=== PATIENT | female | born 1955 | race Two or more races ===

== ENCOUNTER 2024-05-09 21:23 | Emergency (ER) | payer MEDICAID ==
[~2024-05-09] VITALS: Ht 165.1 cm; Wt 79.6 kg
[2024-05-09 21:55] VITALS: BP 129/63; PULSE 100; RESP 16; O2SAT 96
[2024-05-10] MEDS: ACETAMINOPHEN 325 MG TAB PO ONE (00:27)
[2024-05-10 00:58] LABS: COVID19 ANTIGEN SOFIA FIA NEGATIVE (NEGATIVE); Rapid Influenza B Negative (Negative)
[2024-05-10 00:59] LABS: Rapid Influenza A Positive (Negative)
[2024-05-10 02:00] VITALS: TEMP 98.8
[2024-05-10] MEDS ORDERED: PRED20TA2 PO (02:01)
[2024-05-10] MEDS ORDERED: OSEL75CA5 PO (02:01)
[2024-05-10] MEDS ORDERED: ACET500T58 PO (02:01)
--- NOTE | 2024-05-10 02:01 | ED.PDOC ---
SOB-HPI HPI Comments 69-YEAR-OLD FEMALE PRESENTS TO ER WITH COMPLAINTS OF FLU-LIKE SYMPTOMS X1 DAY. PATIENT REPORTS THAT SHE HAS BEEN EXPERIENCING DRY COUGH, INTERMITTENT FEVER, BODY ACHES AND CONGESTION X1 DAY. REPORTS THAT SHE LAST TOOK IBUPROFEN AT 9:00 A.M. PRIOR TO ARRIVAL TO ER. PATIENT PRESENTS TO ER FEBRILE ON ARRIVAL AT 101.6 F, AMBULATORY, WITH STEADY GAIT, IN NO DISTRESS. SHE REPORTS 8/10 CURRENT BODY ACHES PAIN, DENYING ANY OTHER CURRENT PAIN AND REPORTS SHE HAS BEEN AROUND HER GRANDDAUGHTER WHO HAS ALSO BEEN EXPERIENCING SIMILAR SYMPTOMS. 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 History Family History Family History: Unknown Social History Smoker: Non-Smoker Alcohol: Denies ETOH Use Drugs: Denies Drug Use Lives In: Home Constitutional: reports: others ( STATED IN HPI) EENTM: reports: others ( STATED IN HPI) Respiratory: reports: others ( STATED IN HPI) Cardiovascular: denies: chest pain, dizzy spells, diaphoresis, Dyspnea on exertion, edema, irregular heart beat, left arm pain, lightheadedness, palpitations, PND, syncope, others Gastrointestinal: denies: abdomen distended, abdominal pain, blood streaked bowels, constipated, diarrhea, dysphagia, difficulty swallowing, hematemesis, melena, nausea, poor appetite, poor fluid intake, rectal bleeding, rectal pain, vomiting, others Genitourinary: denies: abnormal vagina bleeding, burning, dyspareunia, dysuria, flank pain, frequency, hematuria, incontinence, pain, , vagina discharge, urgency, others Neurological: denies: dizziness, fainting, headache, left sided numbness, left sided weakness, numbness, paresthesia, pre-existing deficit, right sided numbness, right sided weakness, seizure, speech problems, tingling, tremors, weakness, others Musculoskeletal: denies: back pain, gout, joint pain, joint swelling, muscle pain, muscle stiffness, neck pain, others Integumetry: denies: bruises, change in color, change in hair/nails, dryness, laceration, lesions, lumps, rash, wounds, others Allergic/Immunocompromised: denies: Difficulty Healing, Frequent Infections, Hives, Itching, others Hematologic/Lymphatic: denies: anemia, blood clots, easy bleeding, easy bruising, swollen glands, others Endocrine: denies: excessive hunger, excessive sweating, excessive thirst, excessive urination, flushing, intolerance to cold, intolerance to heat, unexplained weight gain, unexplained weight loss, others Psychiatric: denies: anxiety, bipolar disorder, depression, hopeless, panic disorder, schizophrenia, sleepless, suicidal, others Physical Exam General Appearance: No Apparent Distress, Normal HEENT: Normal ENT Inspection, PERRL/EOMI, Pharynx Normal, TMs Normal Neck: Full Range of Motion, Non-Tender, Normal Respiratory: Chest Non-Tender, Lungs Clear, No Accessory Muscle Use, No Respiratory Distress, Normal Breath Sounds Cardiovascular: No Murmur, No Gallop, Regular Rate/Rhythm Breast Exam: Deferred Gastrointestinal: Non Tender, No Pulsatile Mass, Soft Genitalia: Deferred Pelvic: Deferred Rectal: Deferred Extremities: Normal capillary refill, Normal range of motion Neurologic: Alert, business support professional II-XII nml as Tested, No Motor Deficits, Normal Affect, Normal Mood, No Sensory Deficits Cerebellar Function: Normal Reflexes: Normal Skin: Dry, Normal Color, Warm Lymphatic: No Adenopathy Was a procedure done? Was a procedure done?: No Sedation Sedation?: No Differential Dx Differential Diagnosis: Pneumonia, Respiratory Distress, Pharyngitis, Other (COVID-19) X-Ray, Labs, Meds, VS Vital Signs Date Time Temp Pulse Resp B/P (MAP) Pulse Ox O2 Delivery O2 Flow Rate FiO2 05/10/24 02:00 98.8 98.8 05/10/24 02:00 98.8 05/10/24 00:27 101.1 05/09/24 21:55 101.6 100 16 129/63 (85) 96 Lab Test 05/10/24 00:08 Range/Units Influenza Type A Antigen Positive Negative Influenza Type B Antigen Negative Negative SARS-CoV-2 Antigen (Rapid) Negative NEGATIVE Current Medications Medications (Trade) Dose Ordered Sig/Jenifer Route Start Time Stop Time Status Last Admin Acetaminophen (Tylenol Tablet) 650 mg ONCE ONCE PO 05/10/24 00:30 05/10/24 00:31 DC 05/10/24 00:27 SWAB RESULTS REVIEWED-INFLUENZA A POSITIVE TYLENOL 650 MG P.O. ORDERED PATIENT HAD IMPROVEMENT IN SYMPTOMS, TOLERATING P.O. INTAKE WELL AND NONTOXIC APPEARING/IN NO DISTRESS PRIOR TO DISCHARGE ADVISED TO DRINK PLENTY OF FLUIDS ADVISED TO FOLLOW UP WITH PCP IN 1-2 DAYS PATIENT VERBALIZED UNDERSTANDING AND AGREEABLE WITH CURRENT PLAN OF CARE ADVISED TO RETURN TO ER IMMEDIATELY IF SYMPTOMS WORSEN Time of 1ST Reevaluation: 01:24 Reevaluation 1ST: N/A Patient Education/Counseling: Diagnosis, Treatment, Prognosis, Need For Follow Up Family Education/Counseling: No Family Present Departure 1 Departure Time of Disposition: 01:52 Impression: Primary Impression: Influenza A Disposition: 01 HOME / SELF CARE / HOMELESS Condition: Stable e-Prescriptions Prednisone (Prednisone) 20 Mg Tab 20 MG PO BID for 5 Days, #10 TAB 0 Refills Prov: ARELY PAINTER 05/10/24 Oseltamivir Phosphate (Tamiflu) 75 Mg Cap 1 CAP PO BID for 5 Days, #10 CAP 0 Refills Prov: ARELY PAINTER 05/10/24 Acetaminophen (Acetaminophen) 500 Mg Tab 500 MG PO Q4HPRN, #30 TAB 0 Refills Prov: ARELY PAINTER 05/10/24 Discharged With: Self Critical Care Note Critical Care Time?: No Stability Stability form required: No Heart Score Heart Score: Heart Score Response (Comments) Value History N/A 0 EKG N/A 0 Age N/A 0 Risk Factors N/A 0 Troponin N/A 0 Total 0 ARELY PAINTER May 10, 2024 02:01
== END 2024-05-10 02:17 | disposition home or self-care (01) ==
LOC: ER 21:23
DX: J10.1 Influenza due to other identified influenza virus with other respiratory manifestations (principal); I10 Essential (primary) hypertension; Z90.49 Acquired absence of other specified parts of digestive tract; Z20.822 Contact with and (suspected) exposure to COVID-19
CPT/HCPCS: 36415; 87426; 87804